=== PATIENT | female | born 1950 | race Caucasian/White ===

== ENCOUNTER 2016-06-22 12:49 | Outpatient (CLI) | payer MEDICARE, OTHER | END 2016-06-22 12:50 | disposition home or self-care (01) | DX: Z12.31 Encounter for screening mammogram for malignant neoplasm of breast (principal) ==

== ENCOUNTER 2016-06-26 13:26 | Outpatient (CLI) | payer MEDICARE, OTHER | END 2016-06-26 13:27 | disposition home or self-care (01) | DX: M85.88 Other specified disorders of bone density and structure, other site (principal) ==

== ENCOUNTER 2019-04-05 10:39 | Outpatient (CLI) | payer MEDICARE, OTHER ==
--- NOTE | 2019-04-05 14:57 | XRAY Report ---
Reason: PAIN IN TOES Procedure Date: 04/05/2019 Accession Number: [id number] / [id number] Procedure: XR - Toe(s) BILAT CPT Code: Final Report FULL RESULT: EXAM: BILATERAL TOE RADIOGRAPHY EXAM DATE: 04/05/2019 11:02 AM. CLINICAL HISTORY: Pain in toes. COMPARISON: None. TECHNIQUE: 3 views each side. FINDINGS: Bones: Normal. No fracture or bone lesion. Joints: Normal. No subluxations. Soft Tissues: Normal. No soft tissue swelling. IMPRESSION: No evidence of fracture or osseous destruction. RADIA
== END 2019-04-05 10:40 | disposition home or self-care (01) ==
LOC: DI 10:39
PROVIDERS: ATTEND Physician Assistant
DX: M79.675 Pain in left toe(s) (principal)
CPT/HCPCS: 73660

== ENCOUNTER 2020-11-20 09:04 | Outpatient (CLI) | payer MEDICARE, OTHER | END 2020-11-20 09:05 | disposition home or self-care (01) | LOC: DI 09:04 | PROVIDERS: ATTEND Nurse Practitioner Family | DX: R01.1 Cardiac murmur, unspecified (principal); I11.9 Hypertensive heart disease without heart failure | CPT/HCPCS: 93306 ==

== ENCOUNTER 2022-04-27 13:30 | Outpatient (CLI) | payer MEDICARE, OTHER ==
--- NOTE | 2022-04-28 09:45 | Mammography Report ---
BILATERAL DIGITAL SCREENING MAMMOGRAM 3D/2D: 04/27/2022 CLINICAL: Routine screening. Comparison is made to exams dated: 10/11/2018 mammogram, 06/22/2016 mammogram, 05/25/2014 mammogram, and 05/31/2013 mammogram - [facility]. There are scattered areas of fibroglandular density in both breasts (category b / 25%-50% glandular t issue). No significant masses, calcifications, or other findings are seen in either breast. There has been no significant interval change. IMPRESSION: NEGATIVE There is no mammographic evidence of malignancy. A 1 year screening mammogram is recommended. Based on the Tyrer Cuzick model (a risk assessment model) the patients lifetime risk is 4.9% and her 10 year risk is 4.0%. According to the ACR, ACS, and NCCN guidelines, an annual breast MRI exam shelley g with mammogram is recommended if the patients lifetime risk is 20% or greater. This exam was interpreted at Station ID: [id number]. NOTE: For mammograms, a report in lay terms will be sent to the patient. Approximately 15% of breast malignancies will not be visualized mammographically. In the management of a palpable breast mass, a negative mammogram must not discourage biopsy of a clinically suspicious lesion. Electronically Signed By: Carlton Velasco M.D., jr/jolie:04/27/2022 15:35:08 ACR BI-RADS Category 1: Negative 3341F PARENCHYMAL PATTERN: (A) - The breast(s) demonstrate(s) scattered fibroglandular densities. BI-RADS CATEGORY: (1) - 1 RECOMMENDATION: (ANNUAL) - Recommend routine annual screening mammography. [id number] 1 year screening LATERALITY: (B)
== END 2022-04-27 13:31 | disposition home or self-care (01) ==
LOC: DI 13:30
PROVIDERS: ATTEND Nurse Practitioner Family
DX: Z12.31 Encounter for screening mammogram for malignant neoplasm of breast (principal)

== ENCOUNTER 2022-04-27 13:32 | Outpatient (CLI) | payer MEDICARE, OTHER ==
--- NOTE | 2022-04-27 16:13 | DEXA Report ---
PROCEDURE: Dexa Spine and/or Hip INDICATIONS: OSTEOPOROSIS TECHNIQUE: Dual energy x-ray absorptiometry (DXA) was performed on a [employer] System. Regions measur ed are the AP Spine, femoral neck, and if needed forearm. COMPARISON: DEXA 10/11/2018 FINDINGS: Lumbar Spine: Bone Mineral Density 1.112 g/cm/cm,T score -0.6, compared to -1.0 Left Femoral Neck: Bone Mineral Density 0.678 g/cm/cm, T score -2.6, compared to -2.5 Left Hip: Bone Mineral Density 0.765 g/cm/cm,T score -1.9, compared to -2.0 (T score greater or equal to -1.0: NORMAL) (T score from -1.1 to -2.4: OSTEOPENIA) (T score less than or equal to -2.5 to: OSTEOPOROSIS) Impression: Slight improvement in bone mineral density within the lumbar spine. Persistent osteoporosis within the left femoral neck and moderate osteopenia within the left hip rela tively stable. Patients with diagnosis of osteoporosis or osteopenia should have regular bone mineral density assess ment. For those eligible for Medicare, routine testing is allowed once every 2 years. Testing frequ ency can be increased for patients who have rapidly progressing disease or for those who are receivin g medical therapy to restore bone mass. Reviewed by: Kady Berry MD on 04/27/2022 4:12 PM PST Approved by: Kady Berry MD on 04/27/2022 4:12 PM PST Station ID: [id number]
== END 2022-04-27 13:33 | disposition home or self-care (01) ==
LOC: DI 13:32
PROVIDERS: ATTEND Nurse Practitioner Family
DX: M81.0 Age-related osteoporosis without current pathological fracture (principal)

== ENCOUNTER 2022-06-16 06:21 | Day surgery (SDC) | payer MEDICARE, OTHER ==
[2022-06-16] MEDS ORDERED: LACTATED RINGERS 1,000 ML IV ONE ×2 (06:58→08:25)
--- NOTE | 2022-06-16 07:09 | ANESTHESIA ---
Pre-Anesthesia VS, & Labs - Diagnosis positive cologuard - Procedure colonoscopy Vital Signs: Temp Pulse Resp BP Pulse Ox O2 Flow Rate 36.6 C 76 18 138/89 H 99 06/16/22 06:43 06/16/22 06:43 06/16/22 06:43 06/16/22 06:43 06/16/22 06:43 Height: 5 ft 4 in Weight (kg): 80 kg Body Mass Index: 30.2 BMI Classification: Obese - NPO >8 hours - Is Patient ?: No Home Medications and Allergies Home Medications: Ambulatory Orders hydroCHLOROthiazide [Hydrodiuril] 25 mg ORAL DAILY 06/15/22 lisinopriL [Lisinopril] 5 mg PO DAILY 11/09/13 Estradiol [Estrace] 42.5 gm VG DAILY 11/10/13 hydroCHLOROthiazide [Hydrodiuril] 25 mg ORAL DAILY 06/15/22 Allergies/Adverse Reactions: Allergies Allergy/AdvReac Type Severity Reaction Status Date / Time codeine Allergy Intermediate Dizziness Verified 11/09/13 14:23 Anes History & Medical History - Anesthetic History Anesthesia Complications: reports: No previous complications - Medical History Cardiovascular: reports: Hypertension Pulmonary: reports: None Gastrointestinal: reports: Colon polyps Urinary: reports: None Neuro: reports: None Musculoskeletal: reports: Osteoarthritis Endocrine/Autoimmune: reports: None Blood Disorders: reports: None Skin: reports: None Smoking Status: Never smoker Psychosocial: reports: No issues indicated History of Cancer?: No - Surgical History General: reports: Cholecystectomy, Colonoscopy Exam General: Alert, Oriented x3, Cooperative, No acute distress Dental: WNL Mouth Openin Fingerbreadth Neck Mobility: Normal Mallampati classification: II Thyromental Distance: 4-6 cm Mental/Cognitive Status: Alert/Oriented X3, Normal for patient Plan Anesthesia Type: General, Total IV Consent for Procedure(s) Verified and Reviewed: Yes Code Status: Attempt Resuscitation ASA classification: 2-Mild systemic disease Is this case an emergency?: No
[2022-06-16] MEDS ORDERED: PROPOFOL 500 MG/50 ML 500 MG/50 ML VIAL ONE (07:16)
[2022-06-16 08:47] VITALS: BP 137/98
--- NOTE | 2022-06-16 09:28 | ANESTHESIA POST OP EVALUATION ---
Anesthesia Post Eval - Post Anesthesia Eval Vitals: Last Vital Signs Temp 36.1 C L 06/16/22 08:25 Pulse 70 06/16/22 08:46 Resp 17 06/16/22 08:46 BP 137/98 H 06/16/22 08:46 Pulse Ox 99 06/16/22 08:46 O2 Flow Rate CV Function Including HR & BP: Stable Pain Control: Satisfactory Nausea & Vomiting: Negative Mental Status: Baseline Respiratory Status: Airway Patent Hydration Status: Satisfactory Anesthesia Complications: None
== END 2022-06-16 06:22 | disposition home or self-care (01) ==
LOC: SDS 06:21
PROVIDERS: ATTEND Surgery
PROC: 0DBH8ZZ Excision of Cecum, Via Natural or Artificial Opening Endoscopic (ICD-10-PCS; 2022-06-16)
PROC: 0DBK8ZZ Excision of Ascending Colon, Via Natural or Artificial Opening Endoscopic (ICD-10-PCS; principal; 2022-06-16 07:30)
DX: Z12.11 Encounter for screening for malignant neoplasm of colon (principal); R19.5 Other fecal abnormalities; D12.2 Benign neoplasm of ascending colon; K63.5 Polyp of colon; E66.9 Obesity, unspecified; Z68.30 Body mass index [BMI] 30.0-30.9, adult

== ENCOUNTER 2023-05-05 11:07 | Outpatient (CLI) | payer MEDICARE, OTHER ==
--- NOTE | 2023-05-05 16:03 | XRAY Report ---
PROCEDURE: Shoulder 2+V LT INDICATIONS: LEFT SHOULDER PAIN TECHNIQUE: 3 views of the shoulder were acquired. COMPARISON: None. FINDINGS: Bones: No fractures or dislocations. No suspicious bony lesions. Visualized ribs appear intact. Moderate to severe acromioclavicular and glenohumeral degenerative narrowing. Small periarticular ost eophytes are present. Soft tissues: No suspicious soft tissue calcifications. The visualized lungs are within normal limi ts. IMPRESSION: Arthritic changes within the acromioclavicular and glenohumeral joint space. Reviewed by: Kady Berry MD on 05/05/2023 4:02 PM PST Approved by: Kady Berry MD on 05/05/2023 4:02 PM PST Station ID: [id number]
== END 2023-05-05 11:08 | disposition home or self-care (01) ==
LOC: DI 11:07
PROVIDERS: ATTEND Nurse Practitioner Family
DX: M19.012 Primary osteoarthritis, left shoulder (principal)

== ENCOUNTER 2023-12-02 09:00 | Outpatient (CLI) | payer MEDICARE, OTHER ==
--- NOTE | 2023-12-02 10:11 | Ultrasound Report ---
PROCEDURE: Pelvic w/Transvaginal INDICATIONS: POST MENOPAUSAL BLEEDING TECHNIQUE: Real-time scanning was performed of the pelvic organs, with image documentation. Additional endovagi nal scanning was necessary due to incomplete visualization of the adnexal and endometrial structures by transabdominal scanning. COMPARISON: None. FINDINGS: Uterus: 9.5 x 5.9 x 7.1. Retroverted positioning. Heterogeneous thickened endometrium measuring up to 27 mm in thickness. There is a mass measuring 4.9 x 3.3 cm. Incidentally noted mid posterior subserosal fibroid measuring 2.3 x 1.5 cm. Ovaries: Right ovary not well seen. Enlarged heterogeneous left ovary measuring 73 cc, with complex possible complicated fluid versus kajal id contents. Other: No pathologic free fluid. IMPRESSION: Endometrial mass suspicious for malignancy. Enlarged complex left ovarian lesion also suspicious for malignancy. Pelvic MRI gynecologic protocol is recommended for staging, along with gynecologic consultation. Reviewed by: Hernesto Escobar MD on 12/02/2023 10:09 AM PDT Approved by: Hernesto Escobar MD on 12/02/2023 10:09 AM PDT Station ID: [id number]
== END 2023-12-02 09:01 | disposition home or self-care (01) ==
LOC: DI 09:00
PROVIDERS: ATTEND Nurse Practitioner Family
DX: N83.9 Noninflammatory disorder of ovary, fallopian tube and broad ligament, unspecified (principal); R93.89 Abnormal findings on diagnostic imaging of other specified body structures